=== PATIENT | male | born 1950 | race Caucasian/White ===

== ENCOUNTER 2019-02-07 14:01 | Emergency (ER) | payer MEDICARE, OTHER ==
[2019-02-07 14:15] VITALS: BP 144/87
--- NOTE | 2019-02-07 14:25 | UC ---
Laceration HPI - HPI Summary HPI Summary: 68 yo male presents with LEFT middle finger injury. He tells me that just [employer] he was putting down his garage door and his middle and index left fingers got crushed between the door. Sustained a small laceration to his middle finger. He is right handed. Last tetanus was in 2013. Minimal pain at rest. - History Of Current Complaint Chief Complaint: UCLaceration Stated Complaint: HAND LACERATION Time Seen by Provider: 02/07/19 14:25 Hx Obtained From: Patient Laceration Location: Finger Mechanism Of Injury: Blunt Trauma Severity: Moderate Pain Intensity: 5 Pain Scale Used: 0-10 Numeric - Allergies/Home Medications Allergies/Adverse Reactions: Allergies Allergy/AdvReac Type Severity Reaction Status Date / Time No Known Allergies Allergy Verified 02/07/19 14:16 PMH/Surg Hx/FS Hx/Imm Hx Cardiovascular History: Hypertension GI/ History: Gastroesophageal Reflux - Surgical History Surgical History: Yes Surgery Procedure, Year, and Place: cardiac workup (neg) Mar 2015, and cholecsytectomy Apr 2015; tonsils - Family History Known Family History: Positive: Unknown - Social History Occupation: Retired Lives: With Family Alcohol Use: Daily Substance Use Type: None Smoking Status (MU): Former Smoker When Did the Patient Quit Smoking/Using Tobacco: 1989 - Immunization History Most Recent Influenza Vaccination: Apr 2015 Review of Systems All Other Systems Reviewed And Are Negative: Yes Constitutional: Positive: Negative Skin: Positive: Other - laceration left midde finger Respiratory: Positive: Negative Cardiovascular: Positive: Negative Neurovascular: Positive: Negative Musculoskeletal: Positive: Negative Neurological: Positive: Negative Psychological: Positive: Negative Physical Exam - Summary Physical Exam Summary: GENERAL: NAD. WDWN. No pain distress. SKIN: LEFT MIDDLE FINGER: finger pad with horizontal linear 5mm laceration partial thickness. 1mm width at rest. CHEST: No accessory muscle use. Breathing comfortably and in no distress. CV: Pulses intact. Cap refill <2seconds MSK: Left middle and index finger: FROM at MCP, PIP, and DIP. Strength intact NEURO: Alert. PSYCH: Age appropriate behavior. Triage Information Reviewed: Yes Vital Signs: Initial Vital Signs Temp 96.7 F 02/07/19 14:12 Pulse 94 02/07/19 14:12 Resp 17 02/07/19 14:12 BP 144/87 02/07/19 14:12 Pulse Ox 100 02/07/19 14:12 Vital Signs Reviewed: Yes Laceration Repair - Laceration Repair 1 Description: Linear Laceration Size After Repair: Length (cm) - 0.5 Cleansing Completed Via Routine Prep: Yes Irrigation With Pressure Irrigation Device: Yes Closure Material: Skin Adhesive Closure Method: Single Layer Suture Of: Skin Laceration Course/Dx - Course/Dx Course Of Treatment: Wound was cleansed with NS. XR: IMPRESSION: No fracture of the left middle finger is noted. Laceration partial thickness and can be well approximated with dermabond. Dermabond applied. Bandaged with band-aid. Pt placed in finger splint to use tonight to limit flexion and allow wound to heal before beginning full use. - Diagnosis Provider Diagnosis: Laceration of finger Discharge - Sign-Out/Discharge Documenting (check all that apply): Patient Departure All imaging exams completed and their final reports reviewed: Yes - Discharge Plan Condition: Stable Disposition: HOME Patient Education Materials: Skin Adhesive Care (ED) Referrals: Tien Babcock NP [Primary Care Provider] - Additional Instructions: If you develop a fever, shortness of breath, chest pain, new or worsening symptoms - please call your PCP or go to the ED immediately. Your blood pressure was high at todays visit. Please see your primary provider within 4 weeks for recheck and re-evaluation. Keep the area bandaged until well healed. Change the band-aid daily. - Billing Disposition and Condition Condition: STABLE Disposition: Home - Attestation Statements Provider Attestation: Per institutional requirements, I have reviewed the chart, however, I was not consulted specifically or made aware of this patient by the midlevel provider. I did not personally evaluate, interact with , or disposition this patient.
== END 2019-02-07 15:28 | disposition home or self-care (01) ==
LOC: UCEAST 14:01
DX: S61.213A Laceration without foreign body of left middle finger without damage to nail, initial encounter (principal); W23.0XXA Caught, crushed, jammed, or pinched between moving objects, initial encounter; Y92.015 Private garage of single-family (private) house as the place of occurrence of the external cause; I10 Essential (primary) hypertension; K21.9 Gastro-esophageal reflux disease without esophagitis; Z87.891 Personal history of nicotine dependence
CPT/HCPCS: 12001; 73140; 99203; G0463